=== PATIENT | male | born 1965 | race African-American/Black ===

== ENCOUNTER 2017-04-16 14:39 | Emergency (ER) | payer OTHER ==
[~2017-04-16] VITALS: Ht 195.5 cm; Wt 111.6 kg
[~2017-04-16 14:39] MED LIST: ASPIRIN81 M1 PO; CLARITIN10 MG PO; FLONASE ALLERG9.9 ML NAS; LIPITOR40 MG PO; LISINOPRIL5 MG PO; NITROSTAT0.4 MG SL; PLAVIX75 MG PO; PREDNISONE10 MG PO; TOPROL XL25 MG PO; TYLENOL325 M1 PO; ZOLOFT100 MG PO
[2017-04-16 18:28] LABS: BASO # 0.1 10*3/uL (0.0-0.1); BASO % 0.6 % (0.0-1.0); EOS # 0.2 10*3/uL (0.0-0.4); EOS % 2.5 % (1.0-4.0); HEMATOCRIT 42.4 % (42.0-52.0); HEMOGLOBIN 14.2 g/dl (14.0-18.0); LYMPH # 1.7 10*3/uL (1.3-4.4); LYMPH % 18.5 % (27.0-41.0); MEAN CELL VOLUME 83.6 fl (80.0-94.0); MEAN CORPUSCULAR HGB CONC 33.5 g/dl (33.0-37.0); MEAN PLATELET VOLUME 10.5 fl (9.6-12.3); PLATELET COUNT AUTOMATED 144 10*3/uL (130-400); RED BLOOD COUNT 5.07 10*6/uL (4.50-5.90); RED CELL DISTRI WIDTH 13.3 % (0-14.5)
[2017-04-16 18:38] LABS: BUN 12 mg/dl (7-24); CHLORIDE 107 mmol/L (98-107); CREATININE 0.99 mg/dL (0.70-1.30); POTASSIUM 4.1 mmol/L (3.5-5.1); SODIUM 141 mmol/L (136-145)
== END 2017-04-16 19:18 | disposition home or self-care (01) ==
LOC: ED 14:39
PROVIDERS: Emergency Medicine
DX: M79.671 Pain in right foot (principal); Z79.899 Other long term (current) drug therapy

== ENCOUNTER → 2021-04-17 | Outpatient (CLI) | payer OTHER | END | disposition home or self-care (01) | LOC: COVID19 15:41 | PROVIDERS: ATTEND Internal Medicine | DX: U07.1 COVID-19 (principal) ==